=== PATIENT | male | born 1950 ===

== ENCOUNTER 2018-10-15 10:35 | Outpatient (CLI) | payer OTHER | END 2018-10-15 10:39 | disposition home or self-care (01) | LOC: SONOGRAMA 10:35 | DX: E04.1 Nontoxic single thyroid nodule (principal) ==

== ENCOUNTER 2021-09-20 09:44 | Outpatient (CLI) | payer OTHER | END 2021-09-20 09:46 | disposition home or self-care (01) | LOC: SONOGRAMA 09:44 | PROVIDERS: ATTEND Pathology Anatomic Pathology & Clinical Pathology | DX: K40.20 Bilateral inguinal hernia, without obstruction or gangrene, not specified as recurrent (principal) ==